=== PATIENT | female | born 1960 | race Caucasian/White ===

== ENCOUNTER 2018-04-08 13:03 | Day surgery (SDC) | payer OTHER, SELFPAY ==
[2018-04-08 13:47] VITALS: BMI 22.8
[2018-04-08 13:55] VITALS: BP 120/81; PULSE 64; RESP 15; TEMP 36.6; O2SAT 99
[2018-04-08] MEDS: SODIUM CHLORIDE 0.9% 1,000 ML 21 ML IV (14:10)
--- NOTE | 2018-04-08 15:01 | PM.HP.1 ---
History of Present Illness Date Patient Seen: 04/08/18 Time Patient Seen: 15:01 Chief complaint: [id number] SCREENING COLONOSCOPY Narrative: Very pleasant and healthy 57-year-old lady in no distress. She reports her last colonoscopy was at approximately age 50. At that time she had 1 benign polyp removed. She also reports that her 79-year-old father also has colon cancer. She denies any current problems or symptoms related to the function of her GI tract. She reports she needs colonoscopy as per the health maintenance program. Patient History Family & Social History Family History: Reviewed 04/08/18 by Dee Merritt MD Tobacco & Substance use: Smoking Status Never smoker Meds Home Medications Medication Instructions Recorded Confirmed Type escitalopram 10 mg tablet 10 mg PO QDAY #90 tab 02/05/18 04/08/18 Rx progesterone micronized 100 mg 100 mg PO Q DAY #90 cap 02/05/18 04/08/18 Rx capsule estradiol 1 patch TRANSDERMAL QWEEK 04/08/18 04/08/18 History Allergies Allergy/AdvReac Type Severity Reaction Status Date / Time No Known Drug Allergies Allergy Verified 04/08/18 13:45 Review of Systems Review of Systems All systems reviewed & are unremarkable except as noted in HPI and below Exam Vital Signs (past 8 hours): - 04/08/18 13:55 Temperature 97.8 F Pulse Rate 64 Respiratory Rate 15 Blood Pressure 120/81 Pulse Oximetry 99 Oxygen Delivery Method Room Air Narrative Exam Narrative: Very pleasant well-nourished well-developed lady in no distress HEENT: Normocephalic and atraumatic, pupils equal round reactive to light accommodation with anicteric sclera Lungs: Clear bilaterally Heart: Regular rate and rhythm Abdomen: Soft, nontender, active bowel sounds Extremities: Warm and well perfused without edema Assessment & Plan Plan: Assessment/Plan Narrative: Pleasant lady with a personal history of colon polyps and a family history of colon cancer here for a screening colonoscopy. We discussed the risks and benefits of the procedure the patient has expressed desire to complete it today.
[2018-04-08] MEDS: MIDAZOLAM 5 MG/5 ML VIAL IV (15:15)
[2018-04-08] MEDS: fentaNYL 250 MCG/5 ML INJ IV (15:15)
--- NOTE | 2018-04-08 15:34 | PM.OP.1 ---
Operative Date/Time/Diagnoses Date of procedure: 04/08/18 Time of procedure: 15:34 Pre-op diagnosis: Personal history of colon polyps Family history of colon cancer Post-op diagnosis: same Procedure & Clinicians Procedure: Colonoscopy to the cecum Same procedure as scheduled: Yes Indications: Last colonoscopy 7 years ago Surgeon: Dee Merritt Click Yes if Unassisted: Yes Anesthesia Type: Sedation (Versed 8 mg; fentanyl 250 mcg) Operative Notes Findings: 1. Excellent prep 2. No polyps or mass lesions 3. No AV malformations 4. Mild diverticulosis limited the sigmoid region. No evidence of inflammation 5. Grade 1-2 internal hemorrhoids 6. Normal colonoscopy for age Closure Type: not applicable Specimen(s): none sent Procedure in detail: After obtaining informed consent, the patient was brought to the GI suite and placed in the left lateral decubitus position on the examination table. After placement of appropriate monitors, the patient was given incremental doses of Versed and Fentanyl until an appropriate level of sedation was achieved. A time out was held per SCOAP protocol. A digital rectal examination was performed and did not reveal any masses or obstructing lesions. The colonoscope was gently passed into the patient's anus and the entire colon navigated to the level of the cecum with minimal difficulty. Once in the cecum, the scope was withdrawn being sure to go before and beyond all mucosal folds and prominences and get an excellent examination. The findings are noted above. At the level of the rectal vault, the scope was retroflexed and the internal anal canal was examined. The scope was straightened and air aspirated from the colon. The instrument was removed from the patient's body and the procedure was concluded. The patient was allowed to awaken from sedation without difficulty and taken to the post-anesthesia care unit in good condition. Total sedation time 25 min Total withdrawal time 11 min 41 sec Complications: none Condition: stable Disposition: PACU Plan for aftercare: 1. Discharge to home 2. Plan for next colonoscopy in 5 years or as clinically indicated.
[2018-04-08 15:37] VITALS: BP 116/75; PULSE 61; RESP 14; TEMP 36.7; O2SAT 98
[2018-04-08 15:42] VITALS: BP 120/78; PULSE 59; RESP 14; O2SAT 99
[2018-04-08 15:47] VITALS: BP 120/77; PULSE 61; RESP 15; O2SAT 99
[2018-04-08] MEDS: ONDANSETRON 4 MG ODT PO (16:21)
[2018-04-08 16:25] VITALS: BP 119/67; PULSE 64; RESP 16; TEMP 36.8; O2SAT 98
--- NOTE | 2018-04-08 16:25 | SUR.PHASEII ---
pt ready for discharge, vss, assisted with dressing, pt became nauseated, dry heaved. dr hernandez notified and medicated with ondansetron odt. nicolas ease to bedside.
[2018-04-08 16:26] VITALS: BP 115/75; PULSE 68; RESP 16; TEMP 36.6; O2SAT 98
--- NOTE | 2018-04-08 16:53 | SUR.PHASEII ---
1625, pt ready to go, finished dressing and left in stable condition.
== END 2018-04-08 16:25 | disposition home or self-care (01) ==
PROVIDERS: Family Provider Internal Medicine; PCP Internal Medicine; Visit Provider Surgery
PROC: 0DJD8ZZ Inspection of Lower Intestinal Tract, Via Natural or Artificial Opening Endoscopic (ICD-10-PCS; CPT 45378; principal; 2018-04-08 15:00)
DX: Z86.010 Personal history of colon polyps (principal); Z80.0 Family history of malignant neoplasm of digestive organs; K57.30 Diverticulosis of large intestine without perforation or abscess without bleeding; K64.1 Second degree hemorrhoids
CPT/HCPCS: 45378; 99152; 99153; J2250; J3010

== ENCOUNTER → 2018-06-30 11:56 | Outpatient (CLI) | payer OTHER, SELFPAY ==
--- NOTE | 2018-06-30 | DI.RAD.S_ITS ---
PROCEDURE: XR HIP W PEL IF DONE LT 2V INDICATIONS: LEFT HIP,PELVIC PAIN, BACK PAIN TECHNIQUE: AP pelvis with lateral view(s) of the left hip. COMPARISON: [facility], CR, XR LUMBAR SPINE 2-3V, 06/30/2018, 12:03. FINDINGS: Bones: No fractures or dislocations. Pelvic ring appears intact. No suspicious bony lesions. Soft tissues: The visualized bowel gas pattern is normal. There are unusual rounded and ovoid calcifications overlying the pelvis, measuring up to 3.1 cm, potentially representing bladder calcifications versus uterine calcifications in this clinical circumstance (female patient). IMPRESSION: Midline rounded calcifications over the lower pelvis, potentially bladder or uterine in position. A brief bladder ultrasound likely is warranted to accurately determine the etiology. No definite source of left-sided hip pain is found. Dictated by: Clarence Diego M.D. on 06/30/2018 at 13:12 Approved by: Clarence Diego M.D. on 06/30/2018 at 13:15
--- NOTE | 2018-06-30 | DI.RAD.S_ITS ---
PROCEDURE: XR LUMBAR SPINE 2-3V INDICATIONS: LEFT HIP,PELVIC PAIN, BACK PAIN TECHNIQUE: 3 views of the lumbar spine were acquired. COMPARISON: None. FINDINGS: Bones: 5 [id number] vertebrae are present. There is normal bony alignment. No vertebral body compression fractures. No suspicious bony lesions. Degenerative disc disease at L5-S1 is moderately severe and there is facet osteoarthritis also there is near severe at this level. Soft tissues: Overlying bowel gas pattern is normal. No suspicious soft tissue calcifications. 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 Spinal and foraminal stenosis likely is present in this area. MR scanning may be warranted to determine if referred pain from degenerative disc disease and foraminal stenosis explains the current symptomatology. Dictated by: Clarence Diego M.D. on 06/30/2018 at 13:11 Approved by: Clarence Diego M.D. on 06/30/2018 at 13:12
== END ==
PROVIDERS: Family Provider Internal Medicine; PCP Internal Medicine; Visit Provider Internal Medicine
DX: M54.5 Low back pain (principal); M25.552 Pain in left hip; M47.817 Spondylosis without myelopathy or radiculopathy, lumbosacral region; M51.37 Other intervertebral disc degeneration, lumbosacral region
CPT/HCPCS: 72100; 73502

== ENCOUNTER → 2018-07-17 14:07 | Outpatient (CLI) | payer OTHER, SELFPAY ==
--- NOTE | 2018-07-17 | DI.US.S_ITS ---
PROCEDURE: US PELVIC COMPLETE INDICATIONS: ABNORMAL XRAY OF PELVIS CALCIFICATIONS TECHNIQUE: Real-time scanning was performed of the pelvic organs, with image documentation. Additional endovaginal scanning was necessary due to incomplete visualization of the adnexal and endometrial structures by transabdominal scanning. COMPARISON: [facility], CR, XR HIP W PEL IF DONE LT 2V, 06/30/2018, 12:03. [facility], CR, XR LUMBAR SPINE 2-3V, 06/30/2018, 12:03. FINDINGS: Transabdominal scanning: Limited scanning through the kidneys shows no hydronephrosis. No pathologic free abdominal or pelvic fluid. Endovaginal scanning: Uterus: Uterus is normal in size at 4.7 x 6.3 x 8.7 cm, anteverted. The endometrium could not be measured in terms of thickness due to shadowing from densely calcified fibroids. There is a midline posterior intramural 2.5 cm fibroid is calcified and a left-sided posterior intramural 2.5 cm calcified fibroid also. Several additional partially hidden fibroids are present, obscured by calcifications and shadowing more anteriorly. Ovaries: Not seen despite both transabdominal and transvaginal scanning, presumably due to postmenopausal ovarian atrophy combined with overlying bowel gas. IMPRESSION: Densely calcified fibroids within the myometrium, poor visualization of the endometrial lining as a result. These calcifications produce the ovoid and rounded calcifications seen on pelvis/hip plain film imaging 06/30/18. Dictated by: Clarence Diego M.D. on 07/18/2018 at 10:14 Approved by: Clarence Diego M.D. on 07/18/2018 at 10:17
== END ==
PROVIDERS: PCP Internal Medicine; Visit Provider Internal Medicine
DX: R93.5 Abnormal findings on diagnostic imaging of other abdominal regions, including retroperitoneum (principal); D25.1 Intramural leiomyoma of uterus
CPT/HCPCS: 76856

== ENCOUNTER 2018-10-12 23:57 | Emergency (ER) | payer OTHER, SELFPAY ==
[2018-10-13] VITALS: BP 142/98; PULSE 53; RESP 16; TEMP 36.2; O2SAT 100; BMI 23.6
--- NOTE | 2018-10-13 00:21 | ED.EYEPROB ---
HPI - Eye Problem General Chief complaint: Eye Problems Stated complaint: possible plant matter in left eye from gardening Time Seen by Provider: 10/13/18 00:09 Source: patient Mode of arrival: ambulatory Limitations: no limitations History of Present Illness HPI Narrative: 58-year-old female. No prior history of eye surgeries. Does not wear contacts. Wears reading glasses. Was working out in the [place] today when she was ?poked? in the left eye by a branch. That happened late this afternoon. Since then has had irritation in a foreign body sensation. Related Data Home Medications Medication Instructions Recorded Confirmed estradiol 1 patch TRANSDERMAL QWEEK 04/08/18 04/08/18 Previous Rx's Medication Instructions Recorded escitalopram 10 mg tablet 10 mg PO QDAY #90 tab 05/06/18 progesterone micronized 100 mg 100 mg PO Q DAY #90 cap 05/06/18 capsule erythromycin 0.5 inch EYE-LEFT TID 2 Days #1 10/13/18 gram Allergies Allergy/AdvReac Type Severity Reaction Status Date / Time No Known Drug Allergies Allergy Verified 04/08/18 13:45 Review of Systems Constitutional Denies fever(s) and Denies headache(s) Eyes Comments: Irritation foreign body sensation left eye ENT Ears, Nose, Mouth, and Throat: Denies headache(s) Integumentary/Breasts Denies rash Neurologic Denies behavioral changes and Denies headache(s) Psychiatric Denies behavioral changes Hematologic/Lymphatic Comments: Not on anticoagulation PFSH Surgical History No pertinent past surgical history (Acute) Family History Grandfather Parkinsons disease Grandmother Hypertension Hyperlipidemia Brain aneurysm Mother Hypothyroid Sister Depression Social History Smoking Status: Never smoker Social History Smoking Status: Never smoker Exam Initial Vital Signs Initial Vital Signs: Vital Signs Temperature 97.2 F L 10/13/18 00:00 Pulse Rate 53 L 10/13/18 00:00 Respiratory Rate 16 10/13/18 00:00 Blood Pressure 142/98 H 10/13/18 00:00 Pulse Oximetry 100 10/13/18 00:00 Const General: cooperative, comfortable, well developed, well groomed and No acute distress Orientation: alert, awake and oriented x3 HENMT Head: normal to inspection and normocephalic Eyes Alignment and Position: alignment normal Periorbital: periorbital findings normal Eyelids: eyelids normal Conjunctivae: conjunctivae normal Cornea: corneas abnormal on the left fluorescein used and abrasion at the following clock position (0200 hours) Pupils: PERRL EOM: EOM intact bilaterally Direct ophthalmoscopy: normal light reflex and photophobia not present Skin Lesions: no lesions Rashes: no rashes Neuro General: alert, awake and oriented x3 Cognition: normal cognition Speech: speech normal Course Orders Ordered: Erythromycin (Erythromycin Ophth Oint) 1 applic EYE-LEFT NOW ONE Stop: 10/13/18 00:21 Vital Signs - 8 hr 10/13/18 00:00 Temperature 97.2 F L Pulse Rate 53 L Respiratory Rate 16 Blood Pressure 142/98 H Pulse Oximetry 100 MDM - Eye Problem MDM Narrative Medical decision making narrative: No foreign body noted. A inverted the upper and lower eyelids. Patient has a corneal abrasion at the 2 o'clock position. No indication for an open globe. Patient was given erythromycin ointment here in the emergency department. Will send home with a prescription for this. She does not wear contact lenses. She was given return precautions and follow-up instructions. She expressed understanding and agreement with plan. Discharge Plan Departure Patient Disposition: Home Clinical Impression: Corneal abrasion Qualifiers: Encounter type: initial encounter Laterality: left Qualified Code(s): S05.02XA - Injury of conjunctiva and corneal abrasion without foreign body, left eye, initial encounter Instructions: DI for Corneal Abrasion Activity Restrictions/Additional Instructions: Use the erythromycin ointment as directed. Return to the emergency department for any new or worsening symptoms. Prescriptions: New erythromycin 5 mg/gram (0.5 %) ointment 0.5 inch EYE-LEFT TID 2 Days Qty: 1 RF: 0 No Action progesterone micronized 100 mg capsule 100 mg PO Q DAY Qty: 90 RF: 0 escitalopram oxalate [Lexapro] 10 mg tablet 10 mg PO QDAY Qty: 90 RF: 0 estradiol 0.05 mg/24 hr Patch Weekly 1 patch TRANSDERMAL QWEEK RF: 0 Referrals: Tatyana Alexander ARNP [Primary Care Provider] -
[2018-10-13] MEDS: ERYTHROMYCIN OPHTH 1 GM OINT 1 APPLIC EYE-LEFT (00:26)
== END 2018-10-13 00:29 | disposition home or self-care (01) ==
PROVIDERS: Emergency Provider Emergency Medicine; PCP Internal Medicine
DX: S05.02XA Injury of conjunctiva and corneal abrasion without foreign body, left eye, initial encounter (principal)
CPT/HCPCS: 99282; 99283

== ENCOUNTER → 2019-03-25 08:36 | Outpatient (CLI) | payer OTHER, SELFPAY ==
--- NOTE | 2019-03-25 | DI.MG.S_ITS ---
BILATERAL DIGITAL SCREENING MAMMOGRAM 3D/2D WITH CAD: 03/25/2019 CLINICAL: Routine screening. Family history of breast cancer. Comparison is made to exams dated: 06/22/2014 mammogram, 09/15/2015 mammogram, and 12/13/2016 mammogram - [facility]. The tissue of both breasts is extremely dense, which lowers the sensitivity of mammography. Current study was also evaluated with a Computer Aided Detection (CAD) system. There is an oval focal asymmetry in the right breast at 11 o'clock posterior depth. No other significant masses, calcifications, or other findings are seen in either breast. IMPRESSION: INCOMPLETE: NEEDS ADDITIONAL IMAGING EVALUATION The oval focal asymmetry in the right breast is indeterminate. Additional views with possible ultrasound are recommended. This exam was interpreted at Station ID: [id number]. NOTE: For mammograms, a report in lay terms will be sent to the patient. Approximately 15% of breast malignancies will not be visualized mammographically. In the management of a palpable breast mass, a negative mammogram must not discourage biopsy of a clinically suspicious lesion. Electronically Signed By: Radha ambrocio/art:03/25/2019 09:26:30 letter sent: Additional Imaging Needed ACR BI-RADS Category 0: Incomplete 3340F
== END ==
PROVIDERS: PCP Internal Medicine; Visit Provider Internal Medicine
DX: Z12.31 Encounter for screening mammogram for malignant neoplasm of breast (principal); Z80.3 Family history of malignant neoplasm of breast
CPT/HCPCS: 77063; 77067

== ENCOUNTER → 2021-01-17 08:24 | Outpatient (CLI) | payer BC, SELFPAY ==
[2021-01-17 08:49] LABS: COVID19 -Nasal RAPID Negative (Negative)
== END ==
PROVIDERS: PCP Internal Medicine; Visit Provider Physician Assistant
DX: J02.9 Acute pharyngitis, unspecified (principal); R09.81 Nasal congestion; Z20.822 Contact with and (suspected) exposure to COVID-19
CPT/HCPCS: 87635

== ENCOUNTER → 2021-12-18 12:50 | Outpatient (CLI) | payer BC, SELFPAY | PROVIDERS: PCP Internal Medicine; Referring Provider Internal Medicine; Visit Provider Internal Medicine | DX: Z78.0 Asymptomatic menopausal state (principal); M85.89 Other specified disorders of bone density and structure, multiple sites | CPT/HCPCS: 77080 ==

== ENCOUNTER → 2022-02-09 08:05 | Outpatient (CLI) | payer OTHER, SELFPAY ==
--- NOTE | 2022-02-09 | DI.MG.S_ITS ---
BILATERAL DIGITAL SCREENING MAMMOGRAM 3D/2D WITH CAD: 02/09/2022 CLINICAL: Routine screening. Comparison is made to exams dated: 03/25/2019 mammogram - [facility], 12/13/2016 mammogram, and 09/15/2015 mammogram - [facility]. Both breasts are extremely dense, which lowers the sensitivity of mammography (category d />75% glandular tissue). Current study was also evaluated with a Computer Aided Detection (CAD) system. No significant masses, calcifications, or other findings are seen in either breast. There has been no significant interval change. IMPRESSION: NEGATIVE There is no mammographic evidence of malignancy. A 1 year screening mammogram is recommended. Based on the Tyrer Cuzick model (a risk assessment model) the patient's lifetime risk is 13.6% and her 10 year risk is 5.8%. According to the ACR, ACS, and NCCN guidelines, an annual breast MRI exam along with mammogram is recommended if the patient's lifetime risk is 20% or greater. This exam was interpreted at Station ID: [id number]. NOTE: For mammograms, a report in lay terms will be sent to the patient. Approximately 15% of breast malignancies will not be visualized mammographically. In the management of a palpable breast mass, a negative mammogram must not discourage biopsy of a clinically suspicious lesion. Electronically Signed By: Radha ambrocio/art:02/09/2022 14:06:00 letter sent: Normal Exam ACR BI-RADS Category 1: Negative [id number]
== END ==
PROVIDERS: PCP Internal Medicine; Referring Provider Internal Medicine; Visit Provider Internal Medicine
DX: Z12.31 Encounter for screening mammogram for malignant neoplasm of breast (principal)
CPT/HCPCS: 77063; 77067

== ENCOUNTER → 2022-09-25 08:54 | Outpatient (CLI) | payer OTHER, SELFPAY ==
--- NOTE | 2022-09-25 | DI.RAD.S_ITS ---
PROCEDURE: XR HIP W PEL IF DONE LT 2V INDICATIONS: Trochanteric bursitis, left hip TECHNIQUE: AP pelvis with lateral view(s) of the left hip(s). COMPARISON: [facility], , XR HIP W PEL IF DONE LT 2V, 06/30/2018, 12:03. FINDINGS: Bones: No fractures or dislocations. Pelvic ring appears intact. There is mild subchondral cystic change of the superior left acetabulum. No suspicious bony lesions. Soft tissues: The visualized bowel gas pattern is normal. Calcified fibroids are redemonstrated. No suspicious soft tissue calcifications. IMPRESSION: Mild degenerative change of the left hip. Dictated by: Radha Limon M.D. on 09/25/2022 at 11:25 Approved by: Radha Limon M.D. on 09/25/2022 at 11:26
== END ==
PROVIDERS: PCP Internal Medicine; Referring Provider Internal Medicine; Visit Provider Internal Medicine
DX: M70.62 Trochanteric bursitis, left hip (principal)
CPT/HCPCS: 73502

== ENCOUNTER → 2023-02-11 07:47 | Outpatient (CLI) | payer OTHER, SELFPAY ==
--- NOTE | 2023-02-11 | DI.MG.S_ITS ---
BILATERAL DIGITAL SCREENING MAMMOGRAM 3D/2D WITH CAD: 02/11/2023 CLINICAL: Routine screening. Family history of breast cancer. Comparison is made to exams dated: 02/09/2022 mammogram, 03/25/2019 mammogram - [facility], and 12/13/2016 mammogram - [facility]. Both breasts are heterogeneously dense, which may obscure small masses (category c / 51-75% glandular tissue). Current study was also evaluated with a Computer Aided Detection (CAD) system. There is an oval focal asymmetry in the left breast at 1 o'clock middle depth. This is increased in size. No other significant masses, calcifications, or other findings are seen in either breast. IMPRESSION: INCOMPLETE: NEEDS ADDITIONAL IMAGING EVALUATION The oval focal asymmetry in the left breast is indeterminate, probably a cyst that has increased in size. Additional views with possible ultrasound are recommended. Based on the Tyrer Cuzick model (a risk assessment model) the patient's lifetime risk is 8.9% and her 10 year risk is 3.9%. According to the ACR, ACS, and NCCN guidelines, an annual breast MRI exam along with mammogram is recommended if the patient's lifetime risk is 20% or greater. This exam was interpreted at Station ID: [id number]. NOTE: For mammograms, a report in lay terms will be sent to the patient. Approximately 15% of breast malignancies will not be visualized mammographically. In the management of a palpable breast mass, a negative mammogram must not discourage biopsy of a clinically suspicious lesion. Electronically Signed By: Chriss Chen M.D. lc/:02/11/2023 09:57:41 letter sent: Additional Imaging Needed ACR BI-RADS Category 0: Incomplete 3340F
== END ==
PROVIDERS: PCP Internal Medicine; Referring Provider Internal Medicine; Visit Provider Internal Medicine
DX: Z12.31 Encounter for screening mammogram for malignant neoplasm of breast (principal); Z80.3 Family history of malignant neoplasm of breast
CPT/HCPCS: 77063; 77067

== ENCOUNTER → 2023-02-20 09:47 | Outpatient (CLI) | payer OTHER, SELFPAY ==
--- NOTE | 2023-02-20 09:48 | DI.US.S_ITS ---
ULTRASOUND OF LEFT BREAST AND AXILLA: 02/20/2023 CLINICAL: Patient returns today to evaluate an asymmetry in the left breast. Comparison is made to exams dated: 02/20/2023 mammogram, 02/11/2023 mammogram, 02/09/2022 mammogram, 03/25/2019 mammogram - [facility], 12/13/2016 mammogram, and 09/15/2015 mammogram - [facility]. Real-time ultrasound of the left breast axilla was performed. Womack scale images of the real-time examination were reviewed. There is a possible 1.5 cm x 1 cm x 1.5 cm cluster of complicated cysts vs. complex solid-cystic masses in the left breast at 2 o'clock posterior depth 5 cm from the nipple. This correlates with mammography findings. An adjacent irregular component measurings 6 x 9 x 5mm. No significant abnormalities were seen sonographically in the left axilla. There are adjacent smaller probable complicated cysts measuring 4-5mm. IMPRESSION: SUSPICIOUS OF MALIGNANCY There is a possible 1.5 cm x 1 cm x 1.5 cm cluster of complicated cysts vs. complex solid-cystic masses in the left breast at 2 o'clock posterior depth 5 cm from the nipple. This correlates with mammography findings. These have increased in size since last mammogram. Majority shows through transmission, but there may be solid portions. An adjacent irregular component measurings 6 x 9 x 5mm. An ultrasound guided biopsy is recommended. If negative for malignancy, the adjacent smaller probable complicated cysts could be considered for followup in 6months, measuring 4-5mm. This exam was interpreted at Station ID: [id number]. Electronically Signed By: Chriss Chen M.D. lc/:02/20/2023 11:24:08 letter sent: Biopsy Required Ultrasound BI-RADS: 4 Suspicious for malignancy
--- NOTE | 2023-02-20 09:48 | DI.MG.S_ITS ---
UNILATERAL LEFT DIGITAL DIAGNOSTIC MAMMOGRAM 3D/2D WITH ADDITIONAL VIEWS: 02/20/2023 CLINICAL: Additional evaluation requested from prior study. Comparison is made to exams dated: 02/11/2023 mammogram, 02/09/2022 mammogram, and 03/25/2019 mammogram - [facility]. The left breast is heterogeneously dense, which may obscure small masses (category c / 51-75% glandular tissue). There is a cluster of oval focal asymmetries in the left breast at 1 o'clock middle depth. This is seen in additional views. The largest oval mass is increased in size up to 1.3cm. No other significant masses or calcifications are seen in the breast. IMPRESSION: INCOMPLETE: NEEDS ADDITIONAL IMAGING EVALUATION The cluster of oval focal asymmetries in the left breast is indeterminate. An ultrasound is recommended. The largest oval mass is increased in size up to 1.3cm. Based on the Tyrer Cuzick model (a risk assessment model) the patient's lifetime risk is 8.9% and her 10 year risk is 3.9%. According to the ACR, ACS, and NCCN guidelines, an annual breast MRI exam along with mammogram is recommended if the patient's lifetime risk is 20% or greater. This exam was interpreted at Station ID: [id number]. NOTE: For mammograms, a report in lay terms will be sent to the patient. Approximately 15% of breast malignancies will not be visualized mammographically. In the management of a palpable breast mass, a negative mammogram must not discourage biopsy of a clinically suspicious lesion. Electronically Signed By: Chriss Chen M.D. lc/:02/20/2023 11:17:02 ACR BI-RADS Category 0: Incomplete 3340F
== END ==
PROVIDERS: PCP Internal Medicine; Referring Provider Internal Medicine; Visit Provider Internal Medicine
DX: R92.8 Other abnormal and inconclusive findings on diagnostic imaging of breast (principal); N64.89 Other specified disorders of breast
CPT/HCPCS: 76642; 77065; G0279

== ENCOUNTER → 2023-03-05 14:15 | Outpatient (CLI) | payer OTHER, SELFPAY ==
--- NOTE | 2023-03-05 | DI.MG.S_ITS ---
UNILATERAL LEFT DIGITAL DIAGNOSTIC MAMMOGRAM 3D/2D POST-PROCEDURE IMAGING FOR MARKER PLACEMENT: 03/05/2023 CLINICAL: Post clip. Comparison is made to exams dated: 02/20/2023 mammogram, 02/11/2023 mammogram, and 02/09/2022 mammogram - [facility]. The left breast is heterogeneously dense, which may obscure small masses (category c / 51-75% glandular tissue). There is a biopsy marker in the left breast in the 2 O'clock area at the [facility] [place] site. IMPRESSION: POST PROCEDURE MAMMOGRAM FOR MARKER PLACEMENT A biopsy marker in the left breast at the [facility] site. Based on the Tyrer Cuzick model (a risk assessment model) the patient's lifetime risk is 8.9% and her 10 year risk is 3.9%. According to the ACR, ACS, and NCCN guidelines, an annual breast MRI exam along with mammogram is recommended if the patient's lifetime risk is 20% or greater. This exam was interpreted at Station ID: [id number]. NOTE: For mammograms, a report in lay terms will be sent to the patient. Approximately 15% of breast malignancies will not be visualized mammographically. In the management of a palpable breast mass, a negative mammogram must not discourage biopsy of a clinically suspicious lesion. Electronically Signed By: Sage jesus/art:03/05/2023 16:22:13 ACR BI-RADS Category Post-procedure mammogram for marker placement
--- NOTE | 2023-03-05 | DI.US.S_ITS ---
ULTRASOUND GUIDED BIOPSY LEFT BREAST USING VACUUM DEVICE WITH POST MAMMOGRAPHIC AND ULTRASOUND IMAGIN03/05/2023 CLINICAL: Left breast mass. PATIENT CONSENT: Risks (minor bleeding, infection, vasovagal reaction and repeat procedure), benefits and alternatives were explained to the patient and written informed consent was obtained. Correlation is made to exams dated: 02/20/2023 ultrasound, 02/20/2023 mammogram, 02/11/2023 mammogram, 02/09/2022 mammogram, 03/25/2019 mammogram - [facility], and 12/13/2016 mammogram - [facility]. A hematoma adjacent to the mass was aspirated prior to biopsy. The fluid was sent to pathology with the biopsy sample. An ultrasound guided biopsy using real-time ultrasound was performed for the oval mass located in the left breast at 2 o'clock posterior depth. This was described on the previous ultrasound report. The skin was prepped in the usual manner. Local anesthetic was administered to the access site. The abnormality was approached from the lateral aspect. A 13 gauge biopsy needle was placed adjacent to the abnormality under ultrasound guidance. Once the needle was documented to be in the correct location, five specimens were obtained using the Mammotome biopsy system. Post procedure mammographic and ultrasound imaging demonstrates the clip at the targeted area. The specimens were sent to the laboratory for pathological analysis. IMPRESSION: ULTRASOUND GUIDED BIOPSY BENIGN Ultrasound guided biopsy of the mass in the left breast posterior depth was successful. Pathology revealed benign findings (usual ductal hyperplasia, fragments of cyst wall, cystic duct dilation and associated wall fibrosis, focal evidence of rupture). Pathology is concordant with imaging. Recommend diagnostic Left breast diagnostic mammogram and ultrasound in 6 months to demonstrate stability of adjacent probably benign complicated cysts as described on prior diagnostic ultrasound 02/20/2023. This exam was interpreted at Station ID: [id number]. Sage Eagle M.D. fx,esb/:03/08/2023 19:49:48
--- NOTE | 2023-03-05 | PATH_ITS ---
[facility] Accession Number: [id number] No. of containers..01 Tissue . 01 Material submitted: . breast - LEFT BREAST MASS 2:00 5CMFN . 01 Diagnosis: A. Left Breast Mass, 2 o'clock, 5 cm from the Nipple, Biopsy: Fragments of cyst wall. Background breast tissue with cystic duct dilatation and associated wall fibrosis, focal evidence of rupture, and usual ductal hyperplasia. No evidence of atypia, carcinoma in situ or malignancy. MRV 03/07/2023 1434 Local . 01 Electronically signed: . Sofiya Victoria MD, Pathologist NPI- [id number] . 01 Gross description: . The specimen is received in formalin labeled with the patient's name, , and BX breast, consists of multiple yellow to arguello soft tissue fragments admixed with hemorrhagic material aggregating to 2.4 x 1.6 x 0.2 cm. Filtered, inked green, and submitted entirely in cassette A1. . The specimen was removed on 03/05/2023 at 1524. Time in formalin not provided. Cold ischemic time cannot be calculated. Total fixation time is 29.5 hours. ([id number]) /MRV 03/06/2023 1230 Local . 01 Pathologist provided ICD-10: N63.20 . 01 CPT . 268520 Performed at: 01 [facility] [address] [place] [address], [place], [place] [id number] MD Tristan Dallas MD Phone: [phone]
== END ==
PROVIDERS: PCP Internal Medicine; Referring Provider Internal Medicine; Visit Provider Internal Medicine
DX: N63.21 Unspecified lump in the left breast, upper outer quadrant (principal)
CPT/HCPCS: 19083; 77065

== ENCOUNTER → 2023-09-04 09:46 | Outpatient (CLI) | payer OTHER, SELFPAY ==
--- NOTE | 2023-09-04 | DI.RAD.S_ITS ---
PROCEDURE: XR FINGER RT MIN 2V INDICATIONS: RIGHT THUMB PAIN TECHNIQUE: AP hand, 2 views of the 1st finger(s) acquired. COMPARISON: None. FINDINGS: Bones: Mildly displaced fracture at the palmar base of the 1st distal phalanx with intra-articular extension. No suspicious bony lesions. Mild diffuse interphalangeal joint degeneration Soft tissues: No suspicious soft tissue calcifications. IMPRESSION: Small avulsion fracture at the base of the 1st distal phalanx. Dictated by: Dung Lepe M.D. on 09/04/2023 at 10:53 Approved by: Dung Lepe M.D. on 09/04/2023 at 10:55
== END ==
PROVIDERS: PCP Internal Medicine; Referring Provider Internal Medicine; Visit Provider Internal Medicine
DX: S62.521A Displaced fracture of distal phalanx of right thumb, initial encounter for closed fracture (principal); M79.644 Pain in right finger(s); M19.041 Primary osteoarthritis, right hand
CPT/HCPCS: 73140

== ENCOUNTER → 2023-09-19 13:21 | Outpatient (CLI) | payer OTHER, SELFPAY ==
--- NOTE | 2023-09-19 13:23 | DI.MG.S_ITS ---
UNILATERAL LEFT DIGITAL DIAGNOSTIC MAMMOGRAM 3D/2D: 09/19/2023 CLINICAL: Patient returns for a 6 month follow up of the left breast. Post biopsy. Comparison is made to exams dated: 03/05/2023 ultrasound biopsy, 02/20/2023 mammogram, 02/11/2023 mammogram, 02/09/2022 mammogram, and 03/25/2019 mammogram - [facility]. The left breast is heterogeneously dense, which may obscure small masses (category c / 51-75% glandular tissue). There is again seen oval circumscribed masses in the left breast upper outer quadrant at middle depth, not significantly changed since 02/20/2023. There is a biopsy marker in the left breast corresponding to recent benign biopsy. No other significant masses, calcifications, or other findings are seen in the breast. IMPRESSION: INCOMPLETE: NEEDS ADDITIONAL IMAGING EVALUATION Left breast oval circumscribed masses in the middle upper outer quadrant, stable since 02/20/2023. Status post left breast needle biopsy. An ultrasound is recommended for further evaluation and is scheduled to immediately follow this examination. Based on the Tyrer Cuzick model (a risk assessment model) the patient's lifetime risk is 8.6% and her 10 year risk is 3.9%. According to the ACR, ACS, and NCCN guidelines, an annual breast MRI exam along with mammogram is recommended if the patient's lifetime risk is 20% or greater. This exam was interpreted at Station ID: [id number]. NOTE: For mammograms, a report in lay terms will be sent to the patient. Approximately 15% of breast malignancies will not be visualized mammographically. In the management of a palpable breast mass, a negative mammogram must not discourage biopsy of a clinically suspicious lesion. Electronically Signed By: Rosana Eagle M.D., Ph.D. eb/:09/19/2023 16:07:06 ACR BI-RADS Category 0: Incomplete 3340F
--- NOTE | 2023-09-19 13:24 | DI.US.S_ITS ---
LIMITED ULTRASOUND OF LEFT BREAST: 09/19/2023 CLINICAL: 6 month follow-up of cysts. Comparison is made to exams dated: 09/19/2023 mammogram, 03/05/2023 mammogram, 03/05/2023 ultrasound biopsy, 02/20/2023 ultrasound, 02/20/2023 mammogram, and 02/11/2023 mammogram - [facility]. Color flow and real-time ultrasound of the left breast 2 o'clock region were performed. Womack scale images of the real-time examination were reviewed. There is again seen multiple hypoechoic oval circumscribed masses at 2 o'clock, 5 cm from the nipple. The largest mass measures 14 x 10 x 13 mm (previously 15 x 10 x 15 mm) and appears more anechoic on current ultrasound. The adjacent masses are stable in size compared to prior. These findings correspond to mammographic masses. IMPRESSION: PROBABLY BENIGN Left breast 14 mm oval circumscribed mass and adjacent smaller masses at the 2 o'clock position are stable since 02/20/2023. The dominant mass was previously biopsied demonstrating benign pathology with biopsy clip posterolaterally displaced. Findings are probably benign. Recommend follow up mammogram and ultrasound in 6 months to demonstrate 1 year stability. Patient will be due for bilateral mammogram at that time. Findings and recommendations were conveyed to the patient during today's evaluation. This exam was interpreted at Station ID: [id number]. Electronically Signed By: Rosana Eagle M.D., Ph.D. eb/:09/19/2023 16:24:38 letter sent: Followup Recommended Ultrasound BI-RADS: 3 Probably benign
== END ==
PROVIDERS: PCP Internal Medicine; Referring Provider Internal Medicine; Visit Provider Internal Medicine
DX: N63.21 Unspecified lump in the left breast, upper outer quadrant (principal); R92.332 Mammographic heterogeneous density, left breast; R92.8 Other abnormal and inconclusive findings on diagnostic imaging of breast
CPT/HCPCS: 76642; 77065; G0279

== ENCOUNTER → 2024-03-24 09:41 | Outpatient (CLI) | payer OTHER, SELFPAY ==
--- NOTE | 2024-03-24 | DI.MG.S_ITS ---
BILATERAL DIGITAL DIAGNOSTIC MAMMOGRAM 3D/2D: 03/24/2024 CLINICAL: Short term follow up, due bilateral. Comparison is made to exams dated: 09/19/2023 mammogram, 03/05/2023 mammogram, 02/20/2023 mammogram, 02/11/2023 mammogram, and 02/09/2022 mammogram - [facility]. The breasts are heterogeneously dense, which may obscure small masses (category c / 51-75% glandular tissue). There is again seen oval circumscribed masses in the left breast upper outer quadrant at middle depth, not significantly changed since 02/20/2023. There is a biopsy marker in the left breast corresponding to prior benign biopsy. No other significant masses, calcifications, or other findings are seen in the breast. IMPRESSION: INCOMPLETE: NEED ADDITIONAL IMAGING EVALUATION Left breast oval circumscribed masses in the middle upper outer quadrant, stable since 02/20/2023. Status post left breast needle biopsy. An ultrasound is recommended for further evaluation and is scheduled to immediately follow this examination. Based on the Tyrer Cuzick model (a risk assessment model) the patient's lifetime risk is 8.6% and her 10 year risk is 3.9%. According to the ACR, ACS, and NCCN guidelines, an annual breast MRI exam along with mammogram is recommended if the patient's lifetime risk is 20% or greater. This exam was interpreted at Station ID: [id number]. NOTE: For mammograms, a report in lay terms will be sent to the patient. Approximately 15% of breast malignancies will not be visualized mammographically. In the management of a palpable breast mass, a negative mammogram must not discourage biopsy of a clinically suspicious lesion. Electronically Signed By: Rosana Eagle M.D., Ph.D. eb/:03/24/2024 10:33:05 letter sent: Additional Imaging Needed ACR BI-RADS Category 0: Incomplete: Need Additional Imaging Evaluation
--- NOTE | 2024-03-24 | DI.US.S_ITS ---
LIMITED ULTRASOUND OF LEFT BREAST AND AXILLA: 03/24/2024 CLINICAL: Patient returns for a 6 month follow up of the left breast. Comparison is made to exams dated: 03/24/2024 mammogram, 09/19/2023 ultrasound, 09/19/2023 mammogram, 03/05/2023 mammogram, 03/05/2023 ultrasound biopsy, and 02/20/2023 ultrasound - [facility]. Color flow and real-time ultrasound of the left breast 2 o'clock, and axilla regions were performed. Womack scale images of the real-time examination were reviewed. There again seen multiple complex cysts in the left breast at 2 o'clock, 5 cm from the nipple. The largest measures 1.7 x 1.3 x 1.5 cm with increasing cystic component compared to prior (previously measured 1.4 x 1.0 x 1.3 cm on 09/19/2023). The adjacent cysts/complex cysts are similar in size compared to prior. These findings correspond to the mammographic masses. IMPRESSION: PROBABLY BENIGN Left breast 1.7 cm complex cyst at the 2 o'clock position, not significantly changed given differences in technique and measurements since February 2023. Findings are probably benign. Recommend follow-up mammogram and ultrasound in 12 months to demonstrate 2 year stability. Patient will be due for bilateral mammogram at that time. Findings and recommendations were conveyed to the patient during today's evaluation. This exam was interpreted at Station ID: [id number]. Electronically Signed By: Rosana Eagle M.D., Ph.D. eb/:03/24/2024 11:21:27 letter sent: Followup Recommended ACR BI-RADS Category 3: Probably Benign
== END ==
PROVIDERS: PCP Internal Medicine; Referring Provider Internal Medicine; Visit Provider Internal Medicine
DX: R92.8 Other abnormal and inconclusive findings on diagnostic imaging of breast (principal); N60.02 Solitary cyst of left breast; R92.333 Mammographic heterogeneous density, bilateral breasts
CPT/HCPCS: 76642; 77066; G0279

== ENCOUNTER 2024-06-15 10:04 | Day surgery (SDC) | payer OTHER, SELFPAY ==
[2024-06-15 10:56] VITALS: BP 138/85; PULSE 64; RESP 14; TEMP 36.6; O2SAT 98
--- NOTE | 2024-06-15 11:24 | PM.HP.1 ---
History of Present Illness History of Present Illness Date Patient Seen: 06/15/24 Time Patient Seen: 11:24 Chief complaint: Screening Colonoscopy Narrative: 63-year-old white female with a remote history of colon polyps. Her last colonoscopy around 2017 did not reveal any polyps. No changes in her overall health. [facility] Medical History (Updated 06/15/24 @ 11:25 by Jose Juan Rowe MD) Personal history of colonic polyps Surgical History No pertinent past surgical history Family History Grandfather Parkinsons disease Grandmother Hypertension Hyperlipidemia Brain aneurysm Mother Hypothyroid Sister Depression Social History Smoking Status: Never smoker Meds Home Medications and Allergies Home Medications Medication Instructions Recorded Confirmed Type estradiol 0.05 mg/24 hr weekly 1 patch transdermal QWEEK 04/08/18 01/17/21 History transdermal patch progesterone micronized 100 mg 100 mg PO Q DAY #90 caps 05/06/18 01/17/21 Rx capsule sodium,potassium,mag sulfates 17.5 See Rx Instructions PO .COMPLEX 06/04/24 Rx gram-3.13 gram-1.6 gram oral soln #354 mL (Suprep Bowel Prep Kit) Allergies Allergy/AdvReac Type Severity Reaction Status Date / Time No Known Drug Allergies Allergy Verified 01/17/21 08:17 Exam Vital Signs (past 8 hours): - 06/15/24 10:56 Temperature 97.8 F Pulse Rate 64 Respiratory Rate 14 Blood Pressure 138/85 Pulse Oximetry 98 Oxygen Delivery Method Room Air Oxygen Delivery Method Room Air Narrative Exam Narrative: Gen: NAD, sitting comfortably in bed, appears well HEENT: Sclera are anicteric, head is normocephalic and atraumatic, trachea is midline. CV: RRR, no JVD Resp: clear to auscultation bilaterally, equal chest wall movement bilaterally Abd: soft, nontender, normoactive bowel sounds Ext: no edema, full range of motion Neuro: Cranial nerves II-XII grossly intact, no focal deficits Skin: No erythema or ecchymosis Assessment & Plan Assessment and plan (1) Personal history of colonic polyps: Status: Acute Assessment & Plan narrative: Patient presents for colonoscopy Risks, benefits, alternatives to colonoscopy explained, including but not limited to bowel perforation or other serious complication requiring surgery at less than 1 in 5000 colonoscopies, abdominal pain, cramping or bleeding and less than 1% of colonoscopies, and the chances that we find a diagnosis that would require further intervention of about 2%. Patient agrees to proceed. Time-Based Coding :: [TOTAL MINUTES] spent with patient and on the chart (including review of chart, obtaining history, exam, reviewing outside data, placing orders, documenting exam and treatment plan, and counseling patient) on [DATE].
--- NOTE | 2024-06-15 11:47 | PM.OP.COLON ---
Operative Date/Time/Diagnoses Date of procedure: 06/15/24 Time of procedure: 11:47 Pre-op diagnosis: Personal history of polyps Post-op diagnosis: other (Pancolonic diverticulosis, internal hemorrhoids) Procedure & Clinicians Study performed: Colonoscopy Same procedure as scheduled: Yes Indications: Personal history of polyps Surgeon: Jose Juan Rowe Procedure Notes SCOAP/Timeout: Performance Procedure in detail: Time-out was performed. Mac was induced. Patient was placed in left lateral decubitus position. The perineum was inspected without any gross abnormality. Lubricated pediatric colonoscope was inserted and advanced to the cecum. The terminal ileum was intubated. The colonoscope was withdrawn slowly inspecting the circumference of the colon. Very small polyps may have been missed, prep quality was adequate. Retroflexed view of the rectum showed small, non prolapsed nonbleeding internal hemorrhoids. The scope was withdrawn the patient was taken to PACU in good condition. Scope withdrawal time: 5 Sedation minutes: 11 Findings: divertiulosis and internal hemorrhoids Specimen(s): none sent Complications: none Post-procedure Recommendations: Colonoscopy in 10 years Follow up: as needed Disposition: PACU
[2024-06-15 11:52] VITALS: BP 106/68; PULSE 71; RESP 16; TEMP 36.2; O2SAT 98
[2024-06-15 11:56] VITALS: BP 105/74; PULSE 75; RESP 16; O2SAT 98
[2024-06-15 11:59] VITALS: BP 105/74; PULSE 68; RESP 16; TEMP 36.2; O2SAT 98
== END 2024-06-15 12:20 | disposition home or self-care (01) ==
PROVIDERS: PCP Internal Medicine; Referring Provider Surgery; Visit Provider Surgery
PROC: 0DJD8ZZ Inspection of Lower Intestinal Tract, Via Natural or Artificial Opening Endoscopic (ICD-10-PCS; CPT 45378; principal; 2024-06-15 11:15)
DX: Z12.11 Encounter for screening for malignant neoplasm of colon (principal); Z86.0100 Personal history of colon polyps, unspecified; K57.30 Diverticulosis of large intestine without perforation or abscess without bleeding; K64.8 Other hemorrhoids
CPT/HCPCS: G0105; J2405; J2704

== ENCOUNTER → 2025-03-09 15:54 | Outpatient (CLI) | payer OTHER, SELFPAY ==
--- NOTE | 2025-03-09 15:57 | DI.RAD.S_ITS ---
PROCEDURE: XR ABDOMEN 3V INDICATIONS: BOWEL PATTERN CHANGES TECHNIQUE: One view chest and two views of the abdomen were acquired. COMPARISON: None. FINDINGS: Stool gas pattern: Normal-no evidence of ileus or obstruction. No free intraperitoneal or extraperitoneal air. No gross evidence of ascites Soft tissues: Multiple pelvic calcifications appreciated. The 2 largest are each approximately 2 cm. Organs: Possible liver enlargement. IMPRESSION: Multiple central pelvic calcifications ranging up to 2 cm. Nature is unknown. Consider pelvic CT. Delete No acute disease evident Dictated by: Kaushal Alexander M.D. on 03/10/2025 at 10:49 Approved by: Kaushal Alexander M.D. on 03/10/2025 at 10:50
== END ==
PROVIDERS: PCP Registered Nurse; Referring Provider Registered Nurse; Visit Provider Registered Nurse
DX: R19.4 Change in bowel habit (principal)
CPT/HCPCS: 74021

== ENCOUNTER → 2025-04-12 11:57 | Outpatient (CLI) | payer OTHER, SELFPAY ==
--- NOTE | 2025-04-12 11:58 | DI.CT.S_ITS ---
PROCEDURE: CT ABDOMEN PELVIS W CON
== END ==
LOC: CT 11:58
PROVIDERS: PCP Registered Nurse; Referring Provider Registered Nurse; Visit Provider Registered Nurse
DX: D25.9 Leiomyoma of uterus, unspecified (principal); K57.90 Diverticulosis of intestine, part unspecified, without perforation or abscess without bleeding; R93.5 Abnormal findings on diagnostic imaging of other abdominal regions, including retroperitoneum; R19.4 Change in bowel habit
CPT/HCPCS: 74177; Q9967

== ENCOUNTER → 2025-05-07 09:18 | Outpatient (CLI) | payer OTHER, SELFPAY ==
--- NOTE | 2025-05-07 09:19 | DI.US.S_ITS ---
MM diagnostic mammo BI, US breast LT limited: 05/07/2025 BI-RADS: 2 CLINICAL: 64-year old female for bilateral diagnostic mammogram and left diagnostic breast ultrasound. The patient presents for a follow-up. Tyrer-Cuzick lifetime risk of 7.9%. No personal or first-degree family history of breast cancer. Current reported family history of breast cancer: paternal aunt. PRIOR EXAMS 03/24/2024, 09/19/2023, 03/05/2023, 02/11/2023. MAMMOGRAPHY TECHNIQUE: 2D and 3D (tomosynthesis) digital mammographic views obtained, with additional images as needed for full coverage. Current study was also evaluated with a Computer Aided Detection (CAD) system. ULTRASOUND TECHNIQUE Real-time guzman scale and color doppler imaging of the area of clinical interest was performed with image documentation. Left targeted breast ultrasound of the area of clinical interest and the axilla was performed with image documentation. DENSITY C. The breasts are heterogeneously dense, which may obscure small masses. MAMMOGRAPHY FINDINGS Right: No suspicious mass, asymmetry, microcalcification, or other abnormality seen. Left (finding-1): Upper Outer Quadrant, Middle depth: Correlating with prior imaging concern there is a circumscribed, oval, equal-density mass present that is unchanged in size and appearance. Left: Biopsy marker present on the left. ULTRASOUND FINDINGS Left (finding-1): Upper Outer at 2:00, 5 cm from nipple: Correlating with findings on mammogram there are multiple complicated cysts present. Doppler shows no vascularity. The largest complicated cyst measures 1.5 x 1.1 x 1.5 cm. These findings appear more anechoic compared to the original study from 02/20/2023. IMPRESSION: Right * No evidence of malignancy. Left * No evidence of malignancy with benign findings. RECOMMENDATIONS Bilateral * Annual screening mammography. COMMENTS: Findings and recommendations were conveyed to the patient during today's evaluation. OVERALL ASSESSMENT CATEGORY BI-RADS-2: Benign. The [employer] recommends annual screening mammography beginning at age 40 for women with average risk of breast cancer. ELECTRONICALLY SIGNED: Julia Muro M.D. on 05/07/2025 at 01:46:51 PM PT Interpreting Station ID: [id number]
== END ==
LOC: MAMMO 09:18
PROVIDERS: PCP Registered Nurse; Referring Provider Registered Nurse; Visit Provider Registered Nurse
DX: R92.8 Other abnormal and inconclusive findings on diagnostic imaging of breast (principal); R92.333 Mammographic heterogeneous density, bilateral breasts; N60.02 Solitary cyst of left breast; Z80.3 Family history of malignant neoplasm of breast
CPT/HCPCS: 76642; 77066; G0279